=== PATIENT | male | born 1955 | race Caucasian/White ===

== ENCOUNTER 2021-05-04 07:47 | Emergency (ER) | payer MEDICARE, OTHER ==
--- NOTE | 2021-05-04 08:52 | EDM.PDOC ---
ED HPI GENERAL MEDICAL PROBLEM - General Chief Complaint: Genitourinary Problem Stated Complaint: CANNOT PASS HIS URINE Time Seen by Provider: 05/04/21 08:49 Source of Information: Reports: Patient, Family History Limitations: Reports: No Limitations - History of Present Illness INITIAL COMMENTS - FREE TEXT/NARRATIVE: This 66-year-old male has a history of prostate issues with slowing of stream an appointment with a urologist this coming Sunday a week from now. He apparently has had biopsies which have been negative and PSAs which have been up and down. History of brother with prostate removal. Comes now because he has not urinated since yesterday and a Burdick catheter was placed with a removal of about 700 cc. He feels much better subsequently. His health is otherwise generally good with no other particular acute problems however he is concerned about the possibility of diabetes and is noted to have elevated blood pressure while here in the department. He apparently had a CAT scan done recently with contrast and has some labs pending there. Bladder Pain Score (Numeric/FACES): 4 - Related Data Allergies Allergy/AdvReac Type Severity Reaction Status Date / Time No Known Allergies Allergy Verified 05/04/21 08:24 Home Meds: Home Meds NK [No Known Home Meds] 05/04/21 [History] Past Medical History Musculoskeletal History: Reports: Other (See Below) Other Musculoskeletal History: R knee scoping - Infectious Disease History Infectious Disease History: Reports: Chicken Pox Social & Family History - Tobacco Use Tobacco Use Status *Q: Never Tobacco User - Caffeine Use Caffeine Use: Reports: None - Recreational Drug Use Recreational Drug Use: No ED ROS GENERAL - Review of Systems Review Of Systems: Comprehensive ROS is negative, except as noted in HPI. ED EXAM, GI/ABD - Physical Exam Exam: See Below Text/Narrative:: Alert cooperative male walking about the room and distress with the appearance of somebody who has a distended bladder. Vital signs are noted and blood pressure is elevated initially. HEENT shows eyes ears nose and throat are normal no facial droop. Neck is supple normal range of motion Chest is clear with a regular rate and rhythm no abnormal sounds are heard Abdomen is distended lower and tender but soft and nontender after removal of 70 cc of urine Burdick catheter is in place Skin extremities appear to be normal without rash or abnormalities Neurologic is physiologic DTR and tone walks about normally. Exam Limited By: No Limitations Course - Vital Signs Text/Narrative:: Because of the patient's history noted hypertension now and possible cardiac disease history and prostate problems and a recent CAT scan showing diverticulitis and evidence of potential prostate cancer, some basic laboratories ordered for him today prior to his seeing his primary as well as an EKG He is discharged with a Burdick catheter in place to see his urologist Last Recorded V/S: Last Vital Signs Temp 35.8 C L 05/04/21 08:23 Pulse 68 05/04/21 08:34 Resp 17 05/04/21 08:23 BP 176/84 H 05/04/21 08:34 Pulse Ox 96 05/04/21 08:23 - Orders/Labs/Meds Orders: Active Orders 24 hr Category Date Time Status EKG Documentation Completion [RC] ASDIRECTED Care 05/04/21 09:04 Ordered CBC W/O DIFF,HEMOGRAM [HEME] Stat Lab 05/04/21 09:00 Ordered COMPREHENSIVE METABOLIC PN,CMP [CHEM] Stat Lab 05/04/21 09:00 Ordered GLYCOSYLATED HEMOGLOBIN,HGBA1C [CHEM] Stat Lab 05/04/21 09:01 Ordered GLYCOSYLATED HEMOGLOBIN,HGBA1C [CHEM] Stat Lab 05/04/21 09:04 Ordered UA W/MICROSCOPIC [URIN] Stat Lab 05/04/21 09:00 Ordered EKG 12 Lead [EK] Stat Ther 05/04/21 09:00 Ordered Departure - Departure Time of Disposition: 09:30 Disposition: Home, Self-Care 01 Clinical Impression: Retention of urine, Hypertension, Diverticulitis large intestine - Discharge Information Sepsis Event Note (ED) - Evaluation Sepsis Screening Result: No Definite Risk - Focused Exam Vital Signs: Vital Signs Temp Pulse Resp BP Pulse Ox 05/04/21 08:34 68 176/84 H 05/04/21 08:23 35.8 C L 96 17 163/103 H 96 05/04/21 08:00 35.8 C L 96 17 163/103 H 96 - My Orders Last 24 Hours: My Active Orders 05/04/21 09:00 CBC W/O DIFF,HEMOGRAM [HEME] Stat COMPREHENSIVE METABOLIC PN,CMP [CHEM] Stat UA W/MICROSCOPIC [URIN] Stat EKG 12 Lead [EK] Stat 05/04/21 09:01 GLYCOSYLATED HEMOGLOBIN,HGBA1C [CHEM] Stat 05/04/21 09:04 EKG Documentation Completion [RC] ASDIRECTED GLYCOSYLATED HEMOGLOBIN,HGBA1C [CHEM] Stat - Assessment/Plan Last 24 Hours: My Active Orders 05/04/21 09:00 CBC W/O DIFF,HEMOGRAM [HEME] Stat COMPREHENSIVE METABOLIC PN,CMP [CHEM] Stat UA W/MICROSCOPIC [URIN] Stat EKG 12 Lead [EK] Stat 05/04/21 09:01 GLYCOSYLATED HEMOGLOBIN,HGBA1C [CHEM] Stat 05/04/21 09:04 EKG Documentation Completion [RC] ASDIRECTED GLYCOSYLATED HEMOGLOBIN,HGBA1C [CHEM] Stat
== END 2021-05-04 10:43 | disposition home or self-care (01) ==
LOC: JP.ED 07:47
DX: K57.32 Diverticulitis of large intestine without perforation or abscess without bleeding (principal); R33.9 Retention of urine, unspecified; I10 Essential (primary) hypertension
CPT/HCPCS: 36415; 51702; 80053; 81001; 83036; 85027; 93005; 99283-25

== ENCOUNTER 2021-05-24 20:20 | Emergency (ER) | payer MEDICARE ==
[2021-05-24] MEDS: Lidocaine 2% Jelly 10 ML Urojet MUCMEM ONE (21:04)
[2021-05-24] MEDS: Lidocaine 2% Jelly 10 ML Urojet ONE (21:04)
--- NOTE | 2021-05-24 21:13 | EDM.PDOC ---
ED HPI GENERAL MEDICAL PROBLEM - General Chief Complaint: Genitourinary Problem Stated Complaint: UNABLE TO URINATE Time Seen by Provider: 05/24/21 20:47 Source of Information: Reports: Patient History Limitations: Reports: No Limitations - History of Present Illness INITIAL COMMENTS - FREE TEXT/NARRATIVE: Iker is a 66-year-old male presenting to the ED for evaluation of urinary retention. Patient has been followed by a urologist out of ultra room in [place], [place] for enlarged prostate with a markedly elevated PSA. He had had a Su catheter in place for 3 weeks prior to today when it was removed at 9 AM. He went back into 234 voiding with a post void assessment and was able to urinate and had a small amount of post void residual. He was discharged home wi thout the Su catheter and was able to urinate several other times, however, this evening he has not been able to pass his water and comes in with significant discomfort due to an enlarged bladder. [place] any fever or chills, nausea or vomiting, has not had any urgency, frequency, or burning with urination. He was awaiting the results of his prostate assessment, however, they were sent to mail instead of all true in [facility] so he is still awaiting whether or not he has prostate cancer. bladder Pain Score (Numeric/FACES): 9 - Related Data Allergies Allergy/AdvReac Type Severity Reaction Status Date / Time No Known Allergies Allergy Verified 05/04/21 08:24 Home Meds: Home Meds Aspirin/Acetaminophen/Caffeine [Uwsalzp-Dmmykwzbtfdfa-Yvki Tab] 1 each PO BID PRN 05/24/21 [History] Simvastatin 20 mg PO BEDTIME 05/24/21 [History] Tamsulosin HCl [Flomax] 0.4 mg PO DAILY 05/24/21 [History] Past Medical History HEENT History: Reports: Impaired Vision Cardiovascular History: Reports: None Respiratory History: Reports: None Gastrointestinal History: Reports: Diverticulosis Genitourinary History: Reports: BPH, Other (See Below) Other Genitourinary History: chronic su. states PSA of 80 Musculoskeletal History: Reports: Other (See Below) Other Musculoskeletal History: R knee scoping Neurological History: Reports: Other (See Below) Other Neuro History: tension headaches Psychiatric History: Reports: None Endocrine/Metabolic History: Reports: None Hematologic History: Reports: None Immunologic History: Reports: None Oncologic (Cancer) History: Reports: None Dermatologic History: Reports: None - Infectious Disease History Infectious Disease History: Reports: Chicken Pox Social & Family History - Tobacco Use Tobacco Use Status *Q: Never Tobacco User - Caffeine Use Caffeine Use: Reports: Tea - Recreational Drug Use Recreational Drug Use: No ED ROS GENERAL - Review of Systems Review Of Systems: See Below Constitutional: Reports: No Symptoms : Reports: Pain, Urinary Retention ED EXAM, RENAL/ - Physical Exam Exam: See Below Exam Limited By: No Limitations General Appearance: Alert, Anxious, Mild Distress GI/Abdominal: Normal Bowel Sounds, Soft, Tender (Initially mild tenderness in the suprapubic region due to distended bladder, however, this is now resolved with the Su catheter in place. There is 600+ cc of urine output since the Su was placed.) (Male) Exam: Normal Inspection Course - Vital Signs Last Recorded V/S: Last Vital Signs Temp 36.4 C 05/24/21 20:36 Pulse Resp BP 156/77 H 05/24/21 20:49 Pulse Ox - Orders/Labs/Meds Orders: Active Orders 24 hr Category Date Time Status Insert Urinary Catheter [OM.PC] Q24H Care 05/24/21 21:00 Ordered Urinary Catheter Assessment [RC] ASDIRECTED Care 05/24/21 20:50 Active Labs: Laboratory Tests 05/24/21 Range/Units 20:50 Urine Color Yellow (YELLOW) Urine Appearance Clear (CLEAR) Urine pH 5.0 (5.0-8.0) Ur Specific Ophiem 1.025 (1.008-1.030) Urine Protein Negative (NEGATIVE) mg/dL Urine Glucose (UA) Negative (NEGATIVE) mg/dL Urine Ketones Negative (NEGATIVE) mg/dL Urine Occult Blood Trace-intact H (NEGATIVE) Urine Nitrite Negative (NEGATIVE) Urine Bilirubin Negative (NEGATIVE) Urine Urobilinogen 0.2 (0.2-1.0) EU/dL Ur Leukocyte Esterase Negative (NEGATIVE) Urine RBC 0-5 (0-5) Urine WBC 0-5 (0-5) Ur Epithelial Cells Not seen Amorphous Sediment Not seen Urine Bacteria Rare Urine Mucus Not seen Meds: Medications Discontinued Medications Generic Name Dose Route Start Last Admin Trade Name Freq PRN Reason Stop Dose Admin Lidocaine HCl Confirm 05/24/21 20:35 05/24/21 21:04 Lidocaine 2% Jelly 10 Ml Urojet Administered 05/24/21 20:36 Not Given Dose 10 ml .ROUTE .STK-MED ONE Lidocaine HCl 10 ml 05/24/21 20:50 05/24/21 21:04 Lidocaine 2% Jelly 10 Ml Urojet MUCMEM 05/24/21 20:51 10 ml ONETIME ONE Administration - Re-Assessments/Exams Free Text/Narrative Re-Assessment/Exam: 05/24/21 21:38 Su catheter was placed and 600+ cc of urine filled the Su bag. The catheter was secured. We will leave it in place with instructions for the patient to follow-up with his urologist by phone tomorrow. Indications return to the ED were discussed. Urinalysis was obtained and is negative for any infection. At this time patient is suitable for discharge home in satisfactory condition. Departure - Departure Time of Disposition: 21:39 Disposition: Home, Self-Care 01 Clinical Impression: Prostate enlargement, Acute urinary retention - Discharge Information Instructions: Acute Urinary Retention, Male Referrals: Erma Monroy PA-C [Primary Care Provider] - Forms: ED Department Discharge Care Plan Goals: Follow-up with your urologist in [employer] [facility] by phone tomorrow to let them know that you had to have the Su catheter placed again. Manage the Su catheter as before. Sepsis Event Note (ED) - Evaluation Sepsis Screening Result: No Definite Risk - Focused Exam Vital Signs: Vital Signs Temp BP 05/24/21 20:49 156/77 H 05/24/21 20:36 36.4 C - Problem List & Annotations (1) Acute urinary retention SNOMED Code(s): 298006577 Code(s): R33.8 - OTHER RETENTION OF URINE Status: Acute Priority: Low Current Visit: Yes (2) Prostate enlargement SNOMED Code(s): 282573619 Code(s): N40.0 - BENIGN PROSTATIC HYPERPLASIA WITHOUT LOWER URINRY TRACT SYMP Status: Acute Priority: Low Current Visit: Yes - Problem List Review Problem List Initiated/Reviewed/Updated: Yes - My Orders Last 24 Hours: My Active Orders 05/24/21 20:50 Urinary Catheter Assessment [RC] ASDIRECTED 05/24/21 21:00 Insert Urinary Catheter [OM.PC] Q24H - Assessment/Plan Last 24 Hours: My Active Orders 05/24/21 20:50 Urinary Catheter Assessment [RC] ASDIRECTED 05/24/21 21:00 Insert Urinary Catheter [OM.PC] Q24H
== END 2021-05-24 21:56 | disposition home or self-care (01) ==
LOC: JP.ED 20:20
DX: N40.1 Benign prostatic hyperplasia with lower urinary tract symptoms (principal); R33.8 Other retention of urine; Z79.82 Long term (current) use of aspirin; Z79.899 Other long term (current) drug therapy
CPT/HCPCS: 51702; 81001; 99284-25